=== PATIENT | female | born 1975 | race Caucasian/White ===

== ENCOUNTER 2016-09-16 12:04 | Emergency (ER) | payer OTHER ==
[~2016-09-16] VITALS: Ht 165.1 cm; Wt 65.8 kg
[2016-09-16 12:14] VITALS: BP 128/90
--- NOTE | 2016-09-16 12:38 | ED GENERAL ADULT ---
History of Present Illness General Chief Complaint: General Adult Stated Complaint: SENT BY [facility] FOR EVAL OF COUGH Source: patient, family Exam Limitations: no limitations Vital Signs & Intake/Output Vital Signs & Intake/Output Vital Signs Date Time Temp Pulse Resp B/P Pulse O2 O2 Flow FiO2 Ox Delivery Rate 09/16 1405 20 93 Room Air 09/16 1358 89 Room Air 09/16 1357 22 96 Nasal 2.0L Cannula 09/16 1346 94 Nasal 2.0L Cannula 09/16 1345 24 89 Room Air 09/16 1240 22 92 Room Air 09/16 1214 97.6 106 16 128/90 93 Room Air Allergies Coded Allergies: NO KNOWN ALLERGIES (12/13/12) Triage Note: PT STATES SHE HAS HAD A COLD SINCE WEDNESDAY AND WAS SENT IN BY PCP TO R/O PNEUMONIA Triage Nurses Notes Reviewed? yes Onset: Gradual Duration: day(s): (3) Timing: no prior history Injury Environment: home Severity: moderate Severity Numbers: 7 Modifying Factors: Worsens With: other (COUGH). : No Patient currently breastfeeds: No HPI: Patient is a 41-year-old female with no medical history takes occasional tramadol for pain presenting to the emergency department with chief complaint of intermittently productive cough of yellow sputum, shortness of breath, fatigue 3 days. She reports that she was mildly congested over the weekend and then developed more severe congestion starting Wednesday. She's been taking over-the- counter Mucinex with little relief. Feels like something is stuck in her chest. She saw her primary care physician who told her to come into the emergency department to rule out pneumonia. She was given a nebulizer treatment prior to leaving the office prior to arrival to the hospital. She reports that helped slightly. No sick contacts or recent travel. Denies recent surgery. No lower extremity edema or pain. Denies history of blood clots. NoT on any hormone replacement therapy. (ZUHAIR SINGH,CHINEDU) Reconcile Medications Albuterol Sulfate (Proair Hfa) 90 MCG HFA.AER.AD 2 PUF INH Q4-6 PRN PRN BRONCHITIS Azithromycin (Zithromax) 250 MG TABLET 1 DP PO AD BRONCHITIS 2 the first day followed by 1 for days 2-5 Benzonatate (Tessalon Perle) 100 MG CAPSULE 1 CAP PO TID PRN COUGH Methylprednisolone. (Medrol) 4 MG TAB.DS.PK 1 DP PO AD BRONCHITIS 6 on day 1 then reduce by one tablet daily until gone Robitussin AC (Guaifenesin-Codeine Syrup) 200 MG-20 MG/10 ML LIQUID 10 ML PO Q6HR PRN COUGH (LINETTE ESCALONA,MARLEE) Past History Travel History Traveled to [place] past 21 day No Medical History Any Pertinent Medical History? see below for history Surgical History Surgical History: non-contributory Psychosocial History What is your primary language Serbian Tobacco Use: Quit >30 days ago ETOH Use: heavy use Illicit Drug Use: marijuana Family History Hx Contributory? No (CHINEDU SLADE) Review of Systems Review of Systems Constitutional: Reports: malaise. Comments Review of systems: See HPI, All other systems negative. Constitutional, no chills fever or weight loss HEENT: No visual changes no sore throat Cardiovascular: No chest pain ,palpitation , orthopnea or ankle swelling Skin, no jaundice no rashes Respiratory: No dyspnea hemoptysis GI: No nausea no vomiting : No dysuria No hematuria Muscle skeletal: no back pain, no neck pain, Neurologic: No numbness no confusion Psych: No stress anxiety or depression,. Heme/endocrine: No bruising no bleeding no polyuria or polydipsia Immunology: No splenectomy or history of AIDS (CHINEDU SLADE) Physical Exam Physical Exam General Appearance: well developed/nourished, no apparent distress, alert, awake , comfortable Comments: Well-developed well-nourished person in no acute distress HEENT: Normal EENT exam, extraocular motion intact, no nystagmus. Pupils equally round and reactive to light and accommodation. Nose is atraumatic. External auditory canal and Tympanic membranes clear. Pharynx is mildly erythematous, no exudate, clearing secretions without difficulty. No swelling or edema. Neck: Supple, no lymphadenopathy, normal range of motion without pain or tenderness Back: Nontender, no CVA tenderness. Full range of motion Cardiovascular: Regular rate and rhythms no murmurs rubs or gallops, normal JVP Respiratory: Chest nontender. No respiratory distress. Localized wheezing noted to the right base. Abdomen: Soft, nontender nondistended, no appreciable organomegaly. Normal bowel sounds. No ascites Extremity: No edema, no calf tenderness to palpation, normal and equal pulses. Neuro: Alert oriented x3 Skin: No appreciable rash on exposed skin, skin is warm and dry. Psych: Mood and affect is normal, memory and judgment is normal. Core Measures ACS in differential dx? No CVA/TIA Diagnosis: No Severe Sepsis Present: No Septic Shock Present: No (ZUHAIR SINGH,CHINEDU) Progress Differential Diagnoses I considered the following diagnoses in my evaluation of the patient: Pneumonia , bronchitis, upper respiratory infection, asthma exacerbation, atypical pneumonia Plan of Care: Orders Procedure Date/time Status XRY-CHEST XRAY, PA AND LATERAL 09/16 1237 Active Diagnostic Imaging: Viewed by Me: Radiology Read. Discussed w/RAD: Radiology Read. Radiology Impression: PATIENT: GAURI DIAZ PRESENT AGE: 41 PATIENT ACCOUNT NO: [id number] : 77 LOCATION: [facility] ORDERING PHYSICIAN: CHINEDU SINGH SERVICE DATE: 09/16/16-123 EXAM TYPE: RAD - XRY-CHEST XRAY, PA AND LATERAL EXAMINATION: XR CHEST CLINICAL INFORMATION: Cough , shortness of breath COMPARISON: None TECHNIQUE: 2 views of the chest were obtained. FINDINGS: The cardiac size is within normal limits. There is no mediastinal mass. There is no hilar mass. There is no vascular congestion. No focal parenchymal abnormality. Lung volumes are slightly increased. There is no pleural fluid or pneumothorax. Slight deviation of the left paraspinal line at T10/T11 on the left. This could be related to some osteophyte. IMPRESSION: Slightly increased lung volumes. No focal pneumonia or edema. DICTATED BY: ALBERT ERVIN MD Initial ED EKG: none Comments: 09/16/2016 1:06:53 PM patient no acute distress, oxygen saturation around 93% on room air. Patient will receive DuoNeb treatment secondary to localized wheezing noted at the right base. Patient also given by mouth prednisone. She'll GO FOR chest x-ray to rule out pneumonia. 09/16/2016 1:51:43 PM patient feeling improved after DuoNeb treatment and prednisone. She reports that she still feels really congested. We will assess and ambulatory oxygen. Patient will likely be discharged on Z-Kade, Medrol Dosepak, albuterol inhaler and Tessalon Perles. She'll return for worsening symptoms otherwise follow up with her primary care physician in 2 days. Patient has wheezing on lung exam, no lower extremity edema, no risk factors for pulmonary embolus. Patient was likely tachycardic arrival secondary to previous Abita treatment that was given right prior to arriving to the emergency department. Likely bronchitis. Patient AMBULATORY oxygen saturation is 93% after DuoNeb treatment. Patient feels better. Moving better air. Still slightly wheezy at the right base. WILL FOLLOW UP WITH PCP. (CHINEDU SLADE) Departure Departure Time of Disposition: 1351 Disposition: HOME OR SELF CARE Condition: Stable Clinical Impression Primary Impression: Bronchitis Referrals: MALIK SAWYER (PCP/Family) Additional Instructions: Follow-up with your primary care physician call to make an appointment. Use Z- Kade, Medrol Dosepak, and inhaler and has some process prescribed. Increase fluids. Return for worsening symptoms or concerns or if you're unable to get into your primary care physician for recheck on Wednesday. Departure Forms: Customer Survey General Discharge Information (CHINEDU SLADE) Departure Prescriptions: Current Visit Scripts Azithromycin (Zithromax) 1 DP PO AD #6 TAB 2 the first day followed by 1 for days 2-5 Methylprednisolone. (Medrol) 1 DP PO AD #1 DP 6 on day 1 then reduce by one tablet daily until gone Albuterol Sulfate (Proair Hfa) 2 PUF INH Q4-6 PRN PRN BRONCHITIS #1 INHAL Benzonatate (Tessalon Perle) 1 CAP PO TID PRN COUGH #30 CAP Robitussin AC (Guaifenesin-Codeine Syrup) 10 ML PO Q6HR PRN COUGH #200 ML PA/ADDICTION MEDICINE PHYSICIAN Co-Sign Statement Statement: ED Attending supervision documentation- [] I saw and evaluated the patient. I have also reviewed all the pertinent lab results and diagnostic results. I agree with the findings and the plan of care as documented in the PA's/ADDICTION MEDICINE PHYSICIAN's documentation. x I have reviewed the ED Record and agree with the PA's/ADDICTION MEDICINE PHYSICIAN's documentation. [] Additions or exceptions (if any) to the PAs/ADDICTION MEDICINE PHYSICIAN's note and plan are summarized below: [] (LINETTE ESCALONA,MARLEE) Critical Care Note Critical Care Note Critical Care Time: non-applicable (CHINEDU SLADE) ED Attending Observation Initial Observation Note: I have seen and personally examined GAURI DIAZ on 09/16/16 at 1306. I agree with the current emergency department documentation. The disposition (admission or discharge) is uncertain at this time, she needs a period of observation for the following reason(s): The ED Nurse caring for this patient has been personally informed as to what the patient is being observed for. (ZUHAIR SINGH,CHINEDU)
--- NOTE | 2016-09-16 13:47 | RADIOLOGY REPORT ---
EXAMINATION: XR CHEST CLINICAL INFORMATION: Cough, shortness of breath COMPARISON: None TECHNIQUE: 2 views of the chest were obtained. FINDINGS: The cardiac size is within normal limits. There is no mediastinal mass. There is no hilar mass. There is no vascular congestion. No focal parenchymal abnormality. Lung volumes are slightly increased. There is no pleural fluid or pneumothorax. Slight deviation of the left paraspinal line at T10/T11 on the left. This could be related to some osteophyte. IMPRESSION: Slightly increased lung volumes. No focal pneumonia or edema.
[2016-09-16] MEDS ORDERED: ZITHROMAX250 M2 PO (13:54)
[2016-09-16] MEDS ORDERED: MEDROL4 M2 PO (13:54)
[2016-09-16] MEDS ORDERED: TESSALON PERLE100 M1 PO (13:54)
[2016-09-16] MEDS ORDERED: PROAIR HFA8.5 GM INH (13:54)
[2016-09-16] MEDS ORDERED: GUAIFENESIN-COD10 ML PO (14:10)
== END 2016-09-16 14:06 ==
LOC: ERH 12:04
DX: J40 Bronchitis, not specified as acute or chronic (principal); Z87.891 Personal history of nicotine dependence
CPT/HCPCS: 1263